=== PATIENT | female | born 1990 | race Caucasian/White ===

== ENCOUNTER 2017-01-22 14:40 | Emergency (ER) | payer OTHER ==
[~2017-01-22 14:40] MED LIST: ATIVAN1 MG PO; BUPROPION XL300 MG PO; CAMILA0.35 MG PO; IBUPROFEN800 MG PO; LORAZEPAM0.5 MG PO; METHADONE10 MG PO; METHADOSE10 MG/1 ML PO; NO HOME MEDS; PERCOCET 5/31 TABLET PO; PRENATAL TABLE1 EAC3 PO; QUETIAPINE FUM300 MG PO; SEROQUEL100 MG PO; TORADOL10 MG PO; ZITHROMAX Z-PA250 MG PO
== END 2017-01-22 15:25 | disposition left against medical advice (07) ==
LOC: EME 14:40
DX: F19.939 Other psychoactive substance use, unspecified with withdrawal, unspecified (principal); Z53.21 Procedure and treatment not carried out due to patient leaving prior to being seen by health care provider

== ENCOUNTER 2017-11-01 06:33 | Emergency (ER) | payer OTHER ==
[~2017-11-01] VITALS: Ht 157.5 cm; Wt 62.8 kg
[2017-11-01 07:47] LABS: APPEARANCE CLOUDY ((CLEAR)); BILIRUBIN SMALL; BLOOD NEGATIVE; COLOR AMBER ((YELLOW)); GLUCOSE (STRIP) NEGATIVE; KETONES 5; LEUKOCYTES SMALL; NITRITE NEGATIVE; PROTEIN (STRIP) 30; SPECIFIC GRAVITY 1.026 (1.000-1.030)
[2017-11-01 08:04] LABS: HEMATOCRIT 42.8 % (36.0-46.0); HEMOGLOBIN 15.6 G/DL (11.9-15.5); MCH 36.6 PG (29.0-34.0); MCHC 36.4 G/DL (30.0-36.0); MCV 100.5 FL (83-99); PLATELET COUNT 140 K/uL (156-360); RBC DIS.WIDTH-CV 12.4 % (11.8-14.6); RED BLOOD COUNT 4.26 M/uL (3.80-5.20); WHITE BLOOD COUNT 7.9 K/uL (4.1-10.2)
[2017-11-01 08:07] LABS: RED BLOOD CELLS NONE SEEN /HPF (0-5)
[2017-11-01 08:08] LABS: BACTERIA RARE /HPF; EPITHELIAL CELLS 3+ /HPF; MUCUS 2+ /LPF
[2017-11-01 08:10] LABS: OTHER YEAST 1+
[2017-11-01 09:46] LABS: ALBUMIN 3.7 G/DL (3.2-4.8); CHLORIDE 104 MEQ/L (99-109); POTASSIUM 3.7 MEQ/L (3.7-5.4); SODIUM 140 MEQ/L (136-147); TOTAL BILIRUBIN 0.8 MG/DL (0.0-1.0)
[2017-11-01 09:52] LABS: ALKALINE PHOSPHATASE 148 IU/L (3-129); ALT (GPT) 52 IU/L (3-49); AST (GOT) 99 IU/L (2-34); CREATININE 0.6 MG/DL (0.6-1.3); GFR ESTIMATE (CALCULATED) > 59 mL/min/; GLUCOSE 88 mg/dL (70-99); TOTAL PROTEIN 6.5 G/DL (6.4-8.3); UREA NITROGEN (BUN) 7 mg/dL (9-23)
[2017-11-01] MEDS ORDERED: IMODIUM A-D2 M2 PO (12:10)
[2017-11-01] MEDS ORDERED: ZOFRAN4 MG PO (12:10)
[2017-11-01 12:34] VITALS: BP 120/91
== END 2017-11-01 12:41 | disposition home or self-care (01) ==
LOC: EME 06:33
PROVIDERS: Emergency Medicine; Nurse Practitioner Family
DX: R11.2 Nausea with vomiting, unspecified (principal); R19.7 Diarrhea, unspecified; E86.0 Dehydration; N39.0 Urinary tract infection, site not specified; Z88.0 Allergy status to penicillin; F17.200 Nicotine dependence, unspecified, uncomplicated
CPT/HCPCS: 80053; 81003; 84702; 85027; 99281; 99284; G0480; J2405; J7030

== ENCOUNTER 2017-11-29 17:15 | Emergency (ER) | payer OTHER ==
[~2017-11-29] VITALS: Ht 157.5 cm; Wt 58.4 kg
[~2017-11-29 17:15] MED LIST changes: +IMODIUM A-D2 M2 PO; +ZOFRAN4 MG PO
[2017-11-29 18:33] LABS: ALBUMIN 4.6 g/dL (3.2-4.8); CHLORIDE 84 mEq/L (99-109); POTASSIUM 3.2 mEq/L (3.7-5.4); SODIUM 135 mEq/L (136-147)
[2017-11-29 18:36] LABS: GLUCOSE 134 mg/dL (70-99); TOTAL PROTEIN 8.7 g/dL (6.4-8.3)
[2017-11-29 18:38] LABS: TOTAL BILIRUBIN 1.6 mg/dL (0.0-1.0)
[2017-11-29 18:39] LABS: ALKALINE PHOSPHATASE 178 IU/L (3-129); CREATININE 0.8 mg/dL (0.6-1.3); GFR ESTIMATE (CALCULATED) > 59 mL/min/
[2017-11-29 18:40] LABS: UREA NITROGEN (BUN) 17 mg/dL (9-23)
[2017-11-29 18:41] LABS: AST (GOT) 89 IU/L (2-34)
[2017-11-29 18:42] LABS: ALT (GPT) 53 IU/L (3-49)
[2017-11-29 18:48] LABS: QUANTITATIVE HCG < 4.0 MIU/ML
[2017-11-29 18:59] LABS: APPEARANCE CLOUDY ((CLEAR)); BILIRUBIN MODERATE; BLOOD NEGATIVE; COLOR AMBER ((YELLOW)); GLUCOSE (STRIP) 50; KETONES 5; LEUKOCYTES TRACE; NITRITE POSITIVE; PROTEIN (STRIP) >=500; SPECIFIC GRAVITY 1.034 (1.000-1.030)
[2017-11-29 19:08] LABS: HEMATOCRIT 44.1 % (36.0-46.0); HEMOGLOBIN 16.4 G/DL (11.9-15.5); MCH 36.4 PG (29.0-34.0); MCHC 37.2 G/DL (30.0-36.0); MCV 97.8 FL (83-99); PLATELET COUNT 264 K/uL (156-360); RBC DIS.WIDTH-CV 12.4 % (11.8-14.6); RBC DIS.WIDTH-SD 44.6 % (39-53); RED BLOOD COUNT 4.51 M/uL (3.80-5.20); WHITE BLOOD COUNT 13.9 K/uL (4.1-10.2)
[2017-11-29 19:26] LABS: EPITHELIAL CELLS 3+ /HPF; RED BLOOD CELLS NONE SEEN /HPF (0-5); WHITE BLOOD CELLS RARE /HPF (0-5)
[2017-11-29 19:27] LABS: BACTERIA 2+ /HPF; MUCUS 1+ /LPF; UCUL ADDED? YES
[2017-11-29 20:14] LABS: ICTOTEST POSITIVE
[2017-11-29] MEDS ORDERED: CIPRO500 MG PO (23:24)
[2017-11-29] MEDS ORDERED: FLAGYL500 MG PO (23:24)
[2017-11-29] MEDS ORDERED: BENTYL10 MG PO (23:24)
[2017-11-29] MEDS ORDERED: ZOFRAN4 MG PO (23:33)
[2017-11-29 23:47] VITALS: BP 120/88
== END 2017-11-29 23:48 | disposition home or self-care (01) ==
LOC: EME 17:15
DX: N39.0 Urinary tract infection, site not specified (principal); K52.9 Noninfective gastroenteritis and colitis, unspecified; E86.0 Dehydration; F12.90 Cannabis use, unspecified, uncomplicated; F10.99 Alcohol use, unspecified with unspecified alcohol-induced disorder; F17.200 Nicotine dependence, unspecified, uncomplicated; Z88.0 Allergy status to penicillin
CPT/HCPCS: 74177; 80053; 81003; 84702; 85027; 87086; 99281; 99284; J0696; J2765; J7030

== ENCOUNTER 2018-01-07 03:42 | Inpatient (IN) | payer OTHER ==
[~2018-01-07] VITALS: Ht 157.5 cm; Wt 68.1 kg
[2018-01-07] VITALS (7 sets, daily range): BP systolic 128–140; BP diastolic 82–97
[~2018-01-07 03:42] MED LIST changes: +BENTYL10 MG PO; +CIPRO500 MG PO; +FLAGYL500 MG PO
[2018-01-07 04:22] LABS: ALBUMIN 3.8 g/dL (3.2-4.8); CHLORIDE 92 mEq/L (99-109); SODIUM 141 mEq/L (136-147)
[2018-01-07 04:24] LABS: GLUCOSE 192 mg/dL (70-99); TOTAL PROTEIN 7.4 g/dL (6.4-8.3)
[2018-01-07 04:26] LABS: TOTAL BILIRUBIN 3.4 mg/dL (0.0-1.0)
[2018-01-07 04:28] LABS: ALKALINE PHOSPHATASE 224 IU/L (3-129); CREATININE 0.7 mg/dL (0.6-1.3); GFR ESTIMATE (CALCULATED) > 59 mL/min/
[2018-01-07 04:29] LABS: UREA NITROGEN (BUN) 8 mg/dL (9-23)
[2018-01-07 04:30] LABS: AST (GOT) 296 IU/L (2-34)
[2018-01-07 04:31] LABS: ALT (GPT) 139 IU/L (3-49); LIPASE 550 U/L (1.0-51.0)
[2018-01-07 04:33] LABS: POTASSIUM 2.4 mEq/L (3.7-5.4)
[2018-01-07 04:50] LABS: BASOPHIL (%) 0.6 % (0-1); BASOPHIL COUNT 0.1 K/uL (0-0.1); EOSINOPHIL (%) 0.1 % (0-5); HEMATOCRIT 38.5 % (36.0-46.0); HEMOGLOBIN 14.3 G/DL (11.9-15.5); IMMATURE GRANULOCYTE (%) 0.6 % (0.0-0.7); LYMPHOCYTE (%) 12.8 % (15-42); LYMPHOCYTE COUNT 1.2 K/uL (1.0-2.8); MCH 37.7 PG (29.0-34.0); MCHC 37.1 G/DL (30.0-36.0); MCV 101.6 FL (83-99); MONOCYTE (%) 6.6 % (3-12); MONOCYTE COUNT 0.6 K/uL (0-0.8); NEUTROPHIL (%) 79.3 % (45-76); NEUTROPHIL COUNT 7.2 K/uL (1.8-6.4); PLATELET COUNT 221 K/uL (156-360); RBC DIS.WIDTH-CV 16.9 % (11.8-14.6); RBC DIS.WIDTH-SD 62.4 % (39-53); RED BLOOD COUNT 3.79 M/uL (3.80-5.20); WHITE BLOOD COUNT 9.1 K/uL (4.1-10.2)
[2018-01-07 05:59] LABS: SERUM ETHYL ALCOHOL < 10 mg/dL
[2018-01-07 06:04] LABS: MAGNESIUM 1.6 mg/dL (1.3-2.7)
[2018-01-07 06:53] LABS: APPEARANCE TURBID ((CLEAR)); BILIRUBIN MODERATE; BLOOD SMALL; COLOR AMBER ((YELLOW)); GLUCOSE (STRIP) 50; KETONES NEGATIVE; LEUKOCYTES NEGATIVE; NITRITE NEGATIVE; PROTEIN (STRIP) 100; SPECIFIC GRAVITY 1.029 (1.000-1.030)
[2018-01-07 08:05] LABS: UCUL ADDED? NO
[2018-01-07 08:43] LABS: BACTERIA RARE /HPF; EPITHELIAL CELLS RARE /HPF; MUCUS NONE SEEN /LPF; RED BLOOD CELLS 0-5 /HPF (0-5); WHITE BLOOD CELLS 0-5 /HPF (0-5)
[2018-01-07 08:44] LABS: AMORPHOUS PHOSPHATE CRYSTALS 3+
[2018-01-07 14:49] LABS: CHLORIDE 90 MEQ/L (99-109); CREATININE 0.9 MG/DL (0.6-1.3); GFR ESTIMATE (CALCULATED) > 59 mL/min/; GLUCOSE 218 mg/dL (70-99); SODIUM 135 MEQ/L (136-147); UREA NITROGEN (BUN) 11 mg/dL (9-23)
[2018-01-07 14:53] LABS: POTASSIUM 3.1 MEQ/L (3.7-5.4)
[2018-01-07 22:40] LABS: BASOPHIL (%) 0.3 % (0-1); BASOPHIL COUNT 0.1 K/uL (0-0.1); CHLORIDE 94 MEQ/L (99-109); EOSINOPHIL (%) 0.1 % (0-5); HEMATOCRIT 37.9 % (36.0-46.0); HEMOGLOBIN 13.7 G/DL (11.9-15.5); IMMATURE GRANULOCYTE (%) 0.6 % (0.0-0.7); LYMPHOCYTE (%) 6.6 % (15-42); LYMPHOCYTE COUNT 1.2 K/uL (1.0-2.8); MAGNESIUM 1.1 mg/dl (1.3-2.7); MCH 37.8 PG (29.0-34.0); MCHC 36.1 G/DL (30.0-36.0); MCV 104.7 FL (83-99); MONOCYTE (%) 5.7 % (3-12); NEUTROPHIL (%) 86.7 % (45-76); NEUTROPHIL COUNT 15.5 K/uL (1.8-6.4); NRBC (%) 0.2 /100 WBC (0-0); PLATELET COUNT 152 K/uL (156-360); RBC DIS.WIDTH-CV 16.9 % (11.8-14.6); RBC DIS.WIDTH-SD 65.7 % (39-53); RED BLOOD COUNT 3.62 M/uL (3.80-5.20); SODIUM 135 MEQ/L (136-147); WHITE BLOOD COUNT 17.9 K/uL (4.1-10.2)
[2018-01-07 22:45] LABS: CREATININE 0.7 MG/DL (0.6-1.3); GFR ESTIMATE (CALCULATED) > 59 mL/min/; GLUCOSE 198 mg/dL (70-99); PHOSPHORUS 3.1 mg/dL (2.5-4.9); UREA NITROGEN (BUN) 10 mg/dL (9-23)
[2018-01-08] VITALS (18 sets, daily range): BP systolic 104–134; BP diastolic 65–105
[2018-01-08 05:36] LABS: BASOPHIL (%) 0.3 % (0-1); EOSINOPHIL (%) 0.4 % (0-5); EOSINOPHIL COUNT 0.1 K/uL (0-0.3); HEMATOCRIT 37.7 % (36.0-46.0); HEMOGLOBIN 13.1 G/DL (11.9-15.5); IMMATURE GRANULOCYTE (%) 0.5 % (0.0-0.7); LYMPHOCYTE (%) 12.2 % (15-42); LYMPHOCYTE COUNT 1.9 K/uL (1.0-2.8); MCHC 34.7 G/DL (30.0-36.0); MCV 106.5 FL (83-99); MONOCYTE (%) 4.3 % (3-12); MONOCYTE COUNT 0.7 K/uL (0-0.8); NEUTROPHIL (%) 82.3 % (45-76); NEUTROPHIL COUNT 12.7 K/uL (1.8-6.4); NRBC (%) 0.1 /100 WBC (0-0); RBC DIS.WIDTH-CV 16.8 % (11.8-14.6); RBC DIS.WIDTH-SD 64.8 % (39-53); RED BLOOD COUNT 3.54 M/uL (3.80-5.20); WHITE BLOOD COUNT 15.5 K/uL (4.1-10.2)
[2018-01-08 06:04] LABS: PLAT.SUFFICIENCY DECREASED
[2018-01-08 06:05] LABS: PLATELET COUNT 102 K/uL (156-360)
[2018-01-08 08:45] LABS: ALBUMIN 2.5 G/DL (3.2-4.8); ALKALINE PHOSPHATASE 114 IU/L (3-129); ALT (GPT) 56 IU/L (3-49); AST (GOT) 82 IU/L (2-34); CHLORIDE 97 MEQ/L (99-109); CREATININE 0.5 MG/DL (0.6-1.3); DIRECT BILIRUBIN 2.3 mg/dL (0.0-0.3); GFR ESTIMATE (CALCULATED) > 59 mL/min/; LIPASE 666 U/L (1.0-51.0); PHOSPHORUS 2.3 mg/dL (2.5-4.9); POTASSIUM 3.6 MEQ/L (3.7-5.4); SODIUM 134 MEQ/L (136-147); TOTAL BILIRUBIN 3.7 MG/DL (0.0-1.0); TOTAL PROTEIN 4.5 G/DL (6.4-8.3); UREA NITROGEN (BUN) 7 mg/dL (9-23)
[2018-01-08 09:07] LABS: GLUCOSE 112 mg/dL (70-99); MAGNESIUM 1.7 mg/dl (1.3-2.7)
[2018-01-08 14:18] LABS: ALBUMIN 2.7 G/DL (3.2-4.8); ALKALINE PHOSPHATASE 112 IU/L (3-129); ALT (GPT) 63 IU/L (3-49); AST (GOT) 116 IU/L (2-34); C-REACTIVE PROTEIN 91.1 MG/L (0-10); CHLORIDE 96 MEQ/L (99-109); CREATININE 0.5 MG/DL (0.6-1.3); GFR ESTIMATE (CALCULATED) > 59 mL/min/; GLUCOSE 99 mg/dL (70-99); MAGNESIUM 1.6 mg/dl (1.3-2.7); PHOSPHORUS 1.6 mg/dL (2.5-4.9); POTASSIUM 3.7 MEQ/L (3.7-5.4); SODIUM 130 MEQ/L (136-147); TOTAL PROTEIN 5.1 G/DL (6.4-8.3); UREA NITROGEN (BUN) 6 mg/dL (9-23)
[2018-01-08 14:30] LABS: TOTAL BILIRUBIN 4.5 MG/DL (0.0-1.0)
[2018-01-09] VITALS (9 sets, daily range): BP systolic 107–141; BP diastolic 58–92
[2018-01-09 09:03] LABS: BASOPHIL (%) 0.2 % (0-1); EOSINOPHIL (%) 0.9 % (0-5); EOSINOPHIL COUNT 0.1 K/uL (0-0.3); HEMATOCRIT 34.2 % (36.0-46.0); HEMOGLOBIN 12.4 G/DL (11.9-15.5); IMMATURE GRANULOCYTE (%) 0.4 % (0.0-0.7); LYMPHOCYTE (%) 11.8 % (15-42); LYMPHOCYTE COUNT 1.6 K/uL (1.0-2.8); MCHC 36.3 G/DL (30.0-36.0); MCV 104.9 FL (83-99); MONOCYTE (%) 5.7 % (3-12); MONOCYTE COUNT 0.8 K/uL (0-0.8); NEUTROPHIL COUNT 10.9 K/uL (1.8-6.4); PLATELET COUNT 122 K/uL (156-360); RBC DIS.WIDTH-CV 16.4 % (11.8-14.6); RBC DIS.WIDTH-SD 61.8 % (39-53); RED BLOOD COUNT 3.26 M/uL (3.80-5.20); WHITE BLOOD COUNT 13.4 K/uL (4.1-10.2)
[2018-01-09 09:39] LABS: ALBUMIN 2.5 G/DL (3.2-4.8); ALKALINE PHOSPHATASE 133 IU/L (3-129); ALT (GPT) 61 IU/L (3-49); AST (GOT) 148 IU/L (2-34); CHLORIDE 96 MEQ/L (99-109); CREATININE 0.4 MG/DL (0.6-1.3); GFR ESTIMATE (CALCULATED) > 59 mL/min/; GLUCOSE 75 mg/dL (70-99); POTASSIUM 3.1 MEQ/L (3.7-5.4); SODIUM 132 MEQ/L (136-147); TOTAL PROTEIN 4.5 G/DL (6.4-8.3); UREA NITROGEN (BUN) 4 mg/dL (9-23)
[2018-01-09 09:43] LABS: MAGNESIUM 2.1 mg/dl (1.3-2.7); TOTAL BILIRUBIN 6.6 MG/DL (0.0-1.0)
[2018-01-09 12:17] LABS: LIPASE 329 U/L (1.0-51.0)
[2018-01-10] VITALS (8 sets, daily range): BP systolic 102–135; BP diastolic 73–84
[2018-01-10 05:27] LABS: BASOPHIL (%) 0.2 % (0-1); EOSINOPHIL (%) 1.7 % (0-5); EOSINOPHIL COUNT 0.2 K/uL (0-0.3); HEMATOCRIT 31.8 % (36.0-46.0); HEMOGLOBIN 11.1 G/DL (11.9-15.5); IMMATURE GRANULOCYTE (%) 0.8 % (0.0-0.7); LYMPHOCYTE (%) 14.1 % (15-42); LYMPHOCYTE COUNT 1.3 K/uL (1.0-2.8); MCH 36.6 PG (29.0-34.0); MCHC 34.9 G/DL (30.0-36.0); MONOCYTE (%) 10.2 % (3-12); MONOCYTE COUNT 0.9 K/uL (0-0.8); NEUTROPHIL COUNT 6.5 K/uL (1.8-6.4); PLATELET COUNT 110 K/uL (156-360); RBC DIS.WIDTH-CV 16.6 % (11.8-14.6); RBC DIS.WIDTH-SD 62.7 % (39-53); RED BLOOD COUNT 3.03 M/uL (3.80-5.20); WHITE BLOOD COUNT 8.9 K/uL (4.1-10.2)
[2018-01-10 07:40] LABS: ALBUMIN 2.3 G/DL (3.2-4.8); ALKALINE PHOSPHATASE 164 IU/L (3-129); ALT (GPT) 50 IU/L (3-49); AST (GOT) 124 IU/L (2-34); CHLORIDE 94 MEQ/L (99-109); CREATININE 0.4 MG/DL (0.6-1.3); GFR ESTIMATE (CALCULATED) > 59 mL/min/; LIPASE 116 U/L (1.0-51.0); MAGNESIUM 2.3 mg/dl (1.3-2.7); POTASSIUM 3.1 MEQ/L (3.7-5.4); SODIUM 131 MEQ/L (136-147); THYROTROPIN (TSH) 2.6 MIU/L (0.4-5.5); TOTAL PROTEIN 4.3 G/DL (6.4-8.3); TRIGLYCERIDES 120 MG/DL (Normal: <150); UREA NITROGEN (BUN) 2 mg/dL (9-23)
[2018-01-10 07:41] LABS: GLUCOSE 98 mg/dL (70-99)
[2018-01-10 15:44] LABS: INTER. NORMALIZED RATIO 1.8
[2018-01-10 15:47] LABS: PTT 28.1 SEC (25-37)
[2018-01-10 17:46] LABS: UR CREATININE CONCENTRATION 20.5 MG/DL
[2018-01-10 20:31] LABS: CHLORIDE 93 MEQ/L (99-109); CREATININE 0.4 MG/DL (0.6-1.3); GFR ESTIMATE (CALCULATED) > 59 mL/min/; POTASSIUM 3.1 MEQ/L (3.7-5.4); SODIUM 131 MEQ/L (136-147); UREA NITROGEN (BUN) 2 mg/dL (9-23)
[2018-01-10 20:36] LABS: GLUCOSE 65 mg/dL (70-99)
[2018-01-11 06:42] LABS: CHLORIDE 94 MEQ/L (99-109); CREATININE 0.4 MG/DL (0.6-1.3); GFR ESTIMATE (CALCULATED) > 59 mL/min/; POTASSIUM 2.8 MEQ/L (3.7-5.4); SODIUM 133 MEQ/L (136-147); UREA NITROGEN (BUN) 2 mg/dL (9-23)
[2018-01-11 06:53] LABS: GLUCOSE 94 mg/dL (70-99)
[2018-01-11 08:10] VITALS: BP 114/69
[2018-01-11 09:05] LABS: ALBUMIN 2.1 G/DL (3.2-4.8); ALKALINE PHOSPHATASE 172 IU/L (3-129); ALT (GPT) 42 IU/L (3-49); AST (GOT) 96 IU/L (2-34); DIRECT BILIRUBIN 3.3 mg/dL (0.0-0.3); TOTAL BILIRUBIN 5.1 MG/DL (0.0-1.0); TOTAL PROTEIN 4.1 G/DL (6.4-8.3)
[2018-01-11 10:43] LABS: LIPASE 80 U/L (1.0-51.0)
[2018-01-11 16:23] VITALS: BP 105/68
[2018-01-11 23:28] VITALS: BP 119/82
[2018-01-12 00:15] VITALS: BP 104/75
[2018-01-12 05:56] LABS: HEMOGLOBIN 9.7 G/DL (11.9-15.5); MCHC 34.6 G/DL (30.0-36.0); MCV 106.9 FL (83-99); PLATELET COUNT 138 K/uL (156-360); RBC DIS.WIDTH-CV 17.5 % (11.8-14.6); RBC DIS.WIDTH-SD 67.1 % (39-53); RED BLOOD COUNT 2.62 M/uL (3.80-5.20); WHITE BLOOD COUNT 4.9 K/uL (4.1-10.2)
[2018-01-12 06:37] LABS: ALBUMIN 2.1 G/DL (3.2-4.8); ALKALINE PHOSPHATASE 198 IU/L (3-129); ALT (GPT) 34 IU/L (3-49); AST (GOT) 71 IU/L (2-34); CHLORIDE 101 MEQ/L (99-109); CREATININE 0.4 MG/DL (0.6-1.3); DIRECT BILIRUBIN 2.1 mg/dL (0.0-0.3); GFR ESTIMATE (CALCULATED) > 59 mL/min/; GLUCOSE 108 mg/dL (70-99); LIPASE 135 U/L (1.0-51.0); POTASSIUM 3.6 MEQ/L (3.7-5.4); SODIUM 135 MEQ/L (136-147); TOTAL PROTEIN 4.2 G/DL (6.4-8.3); UREA NITROGEN (BUN) 2 mg/dL (9-23)
[2018-01-12 06:41] LABS: TOTAL BILIRUBIN 3.4 MG/DL (0.0-1.0)
[2018-01-12 07:43] VITALS: BP 107/73
[2018-01-12 16:27] VITALS: BP 116/84
[2018-01-13] VITALS: BP 118/80
[2018-01-13 07:00] VITALS: BP 122/85
[2018-01-13 11:06] LABS: HEMATOCRIT 31.7 % (36.0-46.0); HEMOGLOBIN 10.6 G/DL (11.9-15.5); MCH 36.7 PG (29.0-34.0); MCHC 33.4 G/DL (30.0-36.0); MCV 109.7 FL (83-99); RBC DIS.WIDTH-CV 17.7 % (11.8-14.6); RBC DIS.WIDTH-SD 69.6 % (39-53); RED BLOOD COUNT 2.89 M/uL (3.80-5.20); WHITE BLOOD COUNT 6.7 K/uL (4.1-10.2)
[2018-01-13 11:30] LABS: ALBUMIN 2.4 G/DL (3.2-4.8); ALKALINE PHOSPHATASE 219 IU/L (3-129); ALT (GPT) 36 IU/L (3-49); AST (GOT) 72 IU/L (2-34); CHLORIDE 103 MEQ/L (99-109); CREATININE 0.4 MG/DL (0.6-1.3); GFR ESTIMATE (CALCULATED) > 59 mL/min/; GLUCOSE 130 mg/dL (70-99); SODIUM 134 MEQ/L (136-147); TOTAL BILIRUBIN 2.8 MG/DL (0.0-1.0); UREA NITROGEN (BUN) 2 mg/dL (9-23)
[2018-01-13] MEDS ORDERED: CIPRO500 MG PO (11:40)
[2018-01-13] MEDS ORDERED: METRONIDAZOLE500 MG PO (11:41)
[2018-01-13] MEDS ORDERED: FOLIC ACID1 MG PO (11:41)
[2018-01-13] MEDS ORDERED: THIAMINE HCL100 MG PO (11:41)
[2018-01-13] MEDS ORDERED: NICOTINE PATCH1 EAC2 TD (11:41)
[2018-01-13] MEDS ORDERED: PROTONIX40 MG PO (11:42)
[2018-01-13] MEDS ORDERED: ROXICODONE5 MG PO (11:42)
[2018-01-13 11:47] LABS: PLAT.SUFFICIENCY ADEQUATE; PLATELET CLUMPS PRESENT - PLATELET COUNT APPEARS ADQ.
[2018-01-13 12:13] LABS: PLATELET COUNT UNABLE TO REPORT K/uL (156-360)
[2018-01-13 12:57] LABS: FERRITIN 559 NG/ML (10-291); IRON 44 MCG/DL (35-150); TRANSFERRIN (TIBC) 94.8 mg/dL (215-380); TRANSFERRIN SATUR. 46 % (20-55)
[2018-01-13 13:45] LABS: FOLIC ACID (FOLATE) 6.4 NG/ML (5.0-22.0)
[2018-01-14] MEDS ORDERED: CIPRO500 MG PO (11:59)
[2018-01-14] MEDS ORDERED: FLAGYL500 MG PO (12:00)
[2018-01-14] MEDS ORDERED: PROTONIX40 MG PO (12:01)
[2018-01-14] MEDS ORDERED: ROXICODONE5 MG PO (12:01)
[2018-01-14] MEDS ORDERED: NICODERM CQ1 EAC2 TD (12:01)
[2018-01-14] MEDS ORDERED: FOLIC ACID1 MG PO (12:02)
[2018-01-14] MEDS ORDERED: VITAMIN B-1100 MG PO (12:02)
== END 2018-01-13 14:56 | disposition home or self-care (01) | DRG 439 ==
LOC: EME 03:42 → 4WEST 05:52 → EDOF 05:52 → ENRESERV 07:02 → EDOF 07:03 → CANRESERV 08:52 → ENRESERV 08:52 → EDOF 09:09 → ENRESERV 09:12 → 4EAST 11:14 → ENRESERV 16:03 → CANRESERV 16:03 → ENRESERV 16:08 → 4WEST 16:56 → ENRESERV 01-10 → CANRESERV 01-10 → 4WEST 01-10 15:12 → ENRESERV 01-10 15:14 → CANRESERV 01-10 16:52 → ENRESERV 01-10 16:52 → 5EAST 01-10 19:40
PROVIDERS: Emergency Medicine; Hospitalist; Internal Medicine Critical Care Medicine; Obstetrics & Gynecology; Physician Assistant Surgical; Specialist; Surgery
DX: K85.10 Biliary acute pancreatitis without necrosis or infection (principal); K80.10 Calculus of gallbladder with chronic cholecystitis without obstruction; K76.0 Fatty (change of) liver, not elsewhere classified; E87.1 Hypo-osmolality and hyponatremia; E87.6 Hypokalemia; E87.2 Acidosis; E83.42 Hypomagnesemia; E87.70 Fluid overload, unspecified; E83.39 Other disorders of phosphorus metabolism; K50.90 Crohn's disease, unspecified, without complications; D69.6 Thrombocytopenia, unspecified; D64.9 Anemia, unspecified; R74.0 Nonspecific elevation of levels of transaminase and lactic acid dehydrogenase [LDH]; R74.8 Abnormal levels of other serum enzymes; G89.29 Other chronic pain; R00.0 Tachycardia, unspecified; R30.0 Dysuria; R63.0 Anorexia; F12.90 Cannabis use, unspecified, uncomplicated; F10.11 Alcohol abuse, in remission; Z88.0 Allergy status to penicillin; F17.210 Nicotine dependence, cigarettes, uncomplicated
CPT/HCPCS: 74177; 74183; 76705; 80048; 80048 91; 80053; 80076; 81003; 81015; 81025; 82248; 82330; 82436; 82570; 82607; 82728; 82746; 83540; 83605; 83690; 83735; 83935; 84100; 84132 91; 84133; 84300; 84443; 84466; 84478; 85025; 85025 91; 85027; 85610; 85730; 86140; 87040; 87641; 99281; 99285; C1753; C9113; G0480; J0610; J0744; J1170; J1940; J2060; J2405; J2765; J3010; J3411; J3475; J3480; J7030; J7040; J7050; J7120; S0030

== ENCOUNTER 2018-01-17 06:45 | Day surgery (SDC) | payer OTHER ==
[~2018-01-17] VITALS: Ht 157.5 cm; Wt 68.0 kg
[~2018-01-17 06:45] MED LIST changes: +FOLIC ACID1 MG PO; +METRONIDAZOLE500 MG PO; +NICODERM CQ1 EAC2 TD; +NICOTINE PATCH1 EAC2 TD; +PROTONIX40 MG PO; +ROXICODONE5 MG PO; +THIAMINE HCL100 MG PO; +VITAMIN B-1100 MG PO
[2018-01-17 07:41] LABS: INTER. NORMALIZED RATIO 1.4; PTT 30.9 SEC (25-37)
[2018-01-17 07:43] VITALS: BP 110/75
[2018-01-17 10:06] LABS: AMPHETAMINE NEGATIVE (500 ng/mL); BARBITURATES NEGATIVE (200 ng/mL); BENZODIAZEPINES PRESUMPTIVE POSITIVE (150 ng/mL); BUPRENORPHINE NEGATIVE (10 ng/mL); COCAINE NEGATIVE (150 ng/mL); METHADONE NEGATIVE (200 ng/mL); METHAMPHETAMINE NEGATIVE (500 ng/mL); OPIATES (MORPHINE) NEGATIVE (100 ng/mL); OXYCODONE NEGATIVE (100 ng/mL); PHENCYCLIDINE NEGATIVE (25 ng/mL); PROPOXYPHENE NEGATIVE (300 ng/mL); THC CANNABINOIDS PRESUMPTIVE POSITIVE (50 ng/mL); TRICYCLIC ANTIDEPRESSANTS NEGATIVE (300 ng/mL)
[2018-01-17] MEDS ORDERED: NORCO 5/3251 TABLET PO (10:31)
[2018-01-17 10:59] LABS: BENZODIAZEPINES, URINE SCREEN Negative (200 ng/mL)
[2018-01-17 12:11] VITALS: BP 121/85
[2018-01-17 13:05] VITALS: BP 130/76
== END 2018-01-17 13:15 | disposition home or self-care (01) ==
LOC: SDC 06:45
PROVIDERS: Surgery
PROC: 0FT44ZZ Resection of Gallbladder, Percutaneous Endoscopic Approach (ICD-10-PCS; principal; 2018-01-17)
DX: K80.10 Calculus of gallbladder with chronic cholecystitis without obstruction (principal); D64.9 Anemia, unspecified; K21.9 Gastro-esophageal reflux disease without esophagitis; G43.909 Migraine, unspecified, not intractable, without status migrainosus; F17.200 Nicotine dependence, unspecified, uncomplicated; Z88.0 Allergy status to penicillin; Z88.8 Allergy status to other drugs, medicaments and biological substances
CPT/HCPCS: 71046; 80306 90; 84702; 84999; 85610; 85730; 86850; 86900; 86901; 88304; G0480; J0131; J1170; J1580; J1885; J2250; J2405; J2710; J3010; J7050; J7643; S0020; S0030

== ENCOUNTER 2018-03-08 18:48 | Inpatient (IN) | payer OTHER ==
[~2018-03-08] VITALS: Ht 157.5 cm; Wt 60.2 kg
[~2018-03-08 18:48] MED LIST changes: +NORCO 5/3251 TABLET PO
[2018-03-08 19:39] LABS: HEMATOCRIT 38.7 % (36.0-46.0); HEMOGLOBIN 14.4 G/DL (11.9-15.5); MCH 34.6 PG (29.0-34.0); MCHC 37.2 G/DL (30.0-36.0); PLATELET COUNT 125 K/uL (156-360); RBC DIS.WIDTH-CV 17.9 % (11.8-14.6); RBC DIS.WIDTH-SD 59.5 % (39-53); RED BLOOD COUNT 4.16 M/uL (3.80-5.20); WHITE BLOOD COUNT 9.1 K/uL (4.1-10.2)
[2018-03-08 19:46] LABS: APPEARANCE SL.HAZY ((CLEAR)); BILIRUBIN SMALL; BLOOD NEGATIVE; COLOR AMBER ((YELLOW)); GLUCOSE (STRIP) NEGATIVE; KETONES 5; LEUKOCYTES MODERATE; NITRITE NEGATIVE; PROTEIN (STRIP) 100; SPECIFIC GRAVITY 1.025 (1.000-1.030)
[2018-03-08 19:51] LABS: ALBUMIN 3.6 g/dL (3.2-4.8)
[2018-03-08 19:52] LABS: CHLORIDE 90 mEq/L (99-109); SODIUM 139 mEq/L (136-147)
[2018-03-08 19:59] LABS: ALKALINE PHOSPHATASE 304 IU/L (3-129); AST (GOT) 186 IU/L (2-34); CREATININE 0.6 mg/dL (0.6-1.3); GFR ESTIMATE (CALCULATED) > 59 mL/min/; GLUCOSE 123 mg/dL (70-99); TOTAL PROTEIN 7.1 g/dL (6.4-8.3); UREA NITROGEN (BUN) 6 mg/dL (9-23)
[2018-03-08 20:00] LABS: ALT (GPT) 94 IU/L (3-49)
[2018-03-08 20:01] LABS: LIPASE 769 U/L (1.0-51.0)
[2018-03-08 20:09] LABS: POTASSIUM 2.4 mEq/L (3.7-5.4); QUANTITATIVE HCG < 4.0 MIU/ML
[2018-03-08 20:16] LABS: EPITHELIAL CELLS 2+ /HPF; RED BLOOD CELLS 0-5 /HPF (0-5)
[2018-03-08 20:17] LABS: BACTERIA 1+ /HPF; MUCUS 2+ /LPF; UCUL ADDED? YES
[2018-03-08 20:18] LABS: HYALINE CASTS 0-5 /LPF
[2018-03-08 20:23] LABS: TROP-I INTERPRETATION NEGATIVE; TROPONIN-I 0.02 ng/mL (0.0-0.30)
[2018-03-08 20:35] LABS: MAGNESIUM 1.9 mg/dL (1.3-2.7)
[2018-03-08] MEDS ORDERED: IBUPROFEN800 MG PO (22:15)
[2018-03-08] MEDS ORDERED: KLOR-CON20 MEQ PO (22:17)
[2018-03-08 22:23] LABS: SERUM ETHYL ALCOHOL 32 mg/dL
[2018-03-09 00:58] VITALS: BP 131/83
[2018-03-09 04:04] LABS: BASOPHIL (%) 0.3 % (0-1); EOSINOPHIL (%) 1.5 % (0-5); EOSINOPHIL COUNT 0.1 K/uL (0-0.3); HEMATOCRIT 33.5 % (36.0-46.0); HEMOGLOBIN 12.1 G/DL (11.9-15.5); IMMATURE GRANULOCYTE (%) 0.3 % (0.0-0.7); LYMPHOCYTE (%) 23.8 % (15-42); LYMPHOCYTE COUNT 1.7 K/uL (1.0-2.8); MCH 34.6 PG (29.0-34.0); MCHC 36.1 G/DL (30.0-36.0); MCV 95.7 FL (83-99); MONOCYTE (%) 5.2 % (3-12); MONOCYTE COUNT 0.4 K/uL (0-0.8); NEUTROPHIL (%) 68.9 % (45-76); NEUTROPHIL COUNT 4.9 K/uL (1.8-6.4); PLATELET COUNT 97 K/uL (156-360); RBC DIS.WIDTH-SD 61.5 % (39-53); WHITE BLOOD COUNT 7.1 K/uL (4.1-10.2)
[2018-03-09 04:25] LABS: ALBUMIN 2.9 g/dL (3.2-4.8); CHLORIDE 94 mEq/L (99-109); POTASSIUM 2.8 mEq/L (3.7-5.4); SODIUM 139 mEq/L (136-147)
[2018-03-09 04:27] LABS: GLUCOSE 108 mg/dL (70-99)
[2018-03-09 04:31] LABS: ALKALINE PHOSPHATASE 240 IU/L (3-129); CREATININE 0.5 mg/dL (0.6-1.3); GFR ESTIMATE (CALCULATED) > 59 mL/min/
[2018-03-09 04:32] LABS: UREA NITROGEN (BUN) 6 mg/dL (9-23)
[2018-03-09 04:33] LABS: AST (GOT) 121 IU/L (2-34)
[2018-03-09 04:34] LABS: ALT (GPT) 68 IU/L (3-49)
[2018-03-09 04:35] LABS: LIPASE 556 U/L (1.0-51.0)
[2018-03-09 04:44] VITALS: BP 117/77
[2018-03-09 04:47] LABS: TOTAL BILIRUBIN 1.9 mg/dL (0.0-1.0); TOTAL PROTEIN 5.7 g/dL (6.4-8.3)
[2018-03-09 07:17] VITALS: BP 120/76
[2018-03-09 11:16] VITALS: BP 113/78
[2018-03-09 16:11] VITALS: BP 127/76
[2018-03-09 20:55] VITALS: BP 119/86
[2018-03-10] VITALS (7 sets, daily range): BP systolic 118–153; BP diastolic 80–96
[2018-03-10 06:52] LABS: CHLORIDE 98 MEQ/L (99-109); CREATININE 0.3 MG/DL (0.6-1.3); GFR ESTIMATE (CALCULATED) > 59 mL/min/; GLUCOSE 71 mg/dL (70-99); POTASSIUM 3.3 MEQ/L (3.7-5.4); SODIUM 134 MEQ/L (136-147); UREA NITROGEN (BUN) 4 mg/dL (9-23)
[2018-03-10 07:48] LABS: BASOPHIL (%) 0.2 % (0-1); EOSINOPHIL (%) 5.2 % (0-5); EOSINOPHIL COUNT 0.2 K/uL (0-0.3); HEMATOCRIT 32.8 % (36.0-46.0); HEMOGLOBIN 11.3 G/DL (11.9-15.5); IMMATURE GRANULOCYTE (%) 0.2 % (0.0-0.7); LYMPHOCYTE (%) 29.4 % (15-42); LYMPHOCYTE COUNT 1.2 K/uL (1.0-2.8); MCH 33.8 PG (29.0-34.0); MCHC 34.5 G/DL (30.0-36.0); MCV 98.2 FL (83-99); MONOCYTE COUNT 0.2 K/uL (0-0.8); NEUTROPHIL COUNT 2.5 K/uL (1.8-6.4); PLATELET COUNT 76 K/uL (156-360); RBC DIS.WIDTH-CV 18.2 % (11.8-14.6); RBC DIS.WIDTH-SD 64.2 % (39-53); RED BLOOD COUNT 3.34 M/uL (3.80-5.20); WHITE BLOOD COUNT 4.2 K/uL (4.1-10.2)
[2018-03-10 08:48] LABS: ALBUMIN 2.5 G/DL (3.2-4.8); ALKALINE PHOSPHATASE 215 IU/L (3-129); ALT (GPT) 52 IU/L (3-49); AST (GOT) 141 IU/L (2-34); DIRECT BILIRUBIN 0.9 mg/dL (0.0-0.3); TOTAL PROTEIN 5.2 G/DL (6.4-8.3)
[2018-03-11 06:01] LABS: BASOPHIL (%) 0.5 % (0-1); EOSINOPHIL (%) 4.6 % (0-5); EOSINOPHIL COUNT 0.2 K/uL (0-0.3); HEMATOCRIT 32.6 % (36.0-46.0); HEMOGLOBIN 11.2 G/DL (11.9-15.5); IMMATURE GRANULOCYTE (%) 0.5 % (0.0-0.7); LYMPHOCYTE (%) 33.8 % (15-42); LYMPHOCYTE COUNT 1.4 K/uL (1.0-2.8); MCH 33.9 PG (29.0-34.0); MCHC 34.4 G/DL (30.0-36.0); MCV 98.8 FL (83-99); MONOCYTE (%) 5.3 % (3-12); MONOCYTE COUNT 0.2 K/uL (0-0.8); NEUTROPHIL (%) 55.3 % (45-76); NEUTROPHIL COUNT 2.3 K/uL (1.8-6.4); PLATELET COUNT 66 K/uL (156-360); WHITE BLOOD COUNT 4.1 K/uL (4.1-10.2)
[2018-03-11 06:28] LABS: CHLORIDE 102 MEQ/L (99-109); CREATININE 0.4 MG/DL (0.6-1.3); GFR ESTIMATE (CALCULATED) > 59 mL/min/; GLUCOSE 82 mg/dL (70-99); POTASSIUM 3.6 MEQ/L (3.7-5.4); SODIUM 137 MEQ/L (136-147); UREA NITROGEN (BUN) 4 mg/dL (9-23)
[2018-03-11 06:50] VITALS: BP 140/90
[2018-03-11 08:48] LABS: ALBUMIN 2.7 G/DL (3.2-4.8); ALKALINE PHOSPHATASE 208 IU/L (3-129); ALT (GPT) 54 IU/L (3-49); AST (GOT) 130 IU/L (2-34); TOTAL PROTEIN 5.4 G/DL (6.4-8.3)
[2018-03-11 08:49] LABS: DIRECT BILIRUBIN 0.4 mg/dL (0.0-0.3); TOTAL BILIRUBIN 1.2 MG/DL (0.0-1.0)
[2018-03-11 15:00] VITALS: BP 137/90
[2018-03-11 23:52] VITALS: BP 151/93
[2018-03-12 06:45] LABS: BASOPHIL (%) 0.7 % (0-1); EOSINOPHIL (%) 3.6 % (0-5); EOSINOPHIL COUNT 0.2 K/uL (0-0.3); HEMATOCRIT 30.9 % (36.0-46.0); HEMOGLOBIN 10.6 G/DL (11.9-15.5); IMMATURE GRANULOCYTE (%) 0.2 % (0.0-0.7); LYMPHOCYTE (%) 38.8 % (15-42); LYMPHOCYTE COUNT 1.6 K/uL (1.0-2.8); MCH 33.9 PG (29.0-34.0); MCHC 34.3 G/DL (30.0-36.0); MCV 98.7 FL (83-99); MONOCYTE (%) 8.6 % (3-12); MONOCYTE COUNT 0.4 K/uL (0-0.8); NEUTROPHIL (%) 48.1 % (45-76); RBC DIS.WIDTH-CV 18.6 % (11.8-14.6); RBC DIS.WIDTH-SD 65.3 % (39-53); RED BLOOD COUNT 3.13 M/uL (3.80-5.20); WHITE BLOOD COUNT 4.2 K/uL (4.1-10.2)
[2018-03-12 07:00] VITALS: BP 169/89
[2018-03-12 07:03] LABS: ALBUMIN 2.6 G/DL (3.2-4.8); ALKALINE PHOSPHATASE 188 IU/L (3-129); ALT (GPT) 45 IU/L (3-49); AST (GOT) 85 IU/L (2-34); CHLORIDE 107 MEQ/L (99-109); CREATININE 0.4 MG/DL (0.6-1.3); GFR ESTIMATE (CALCULATED) > 59 mL/min/; GLUCOSE 98 mg/dL (70-99); POTASSIUM 3.7 MEQ/L (3.7-5.4); SODIUM 140 MEQ/L (136-147); TOTAL PROTEIN 5.2 G/DL (6.4-8.3); UREA NITROGEN (BUN) 2 mg/dL (9-23)
[2018-03-12 07:04] LABS: TOTAL BILIRUBIN 0.8 MG/DL (0.0-1.0)
[2018-03-12 07:20] LABS: PLATELET COUNT 104 K/uL (156-360)
[2018-03-12] MEDS ORDERED: FAMOTIDINE20 MG PO (09:33)
[2018-03-12] MEDS ORDERED: FOLIC ACID1 MG PO (09:33)
[2018-03-12] MEDS ORDERED: THERAGRAN1 TABLET PO (09:34)
[2018-03-12] MEDS ORDERED: ENDOCET 5-3251 EACH PO (09:35)
[2018-03-12] MEDS ORDERED: Thiamine,Vitamin B1 PO (09:35)
== END 2018-03-12 12:01 | disposition home or self-care (01) | DRG 439 ==
LOC: EME 18:48 → EDOF 22:56 → 5EAST 22:56 → ENRESERV 23:00 → 5EAST 03-09 00:30
PROVIDERS: Hospitalist; Internal Medicine; Physician Assistant Medical
DX: K85.20 Alcohol induced acute pancreatitis without necrosis or infection (principal); E87.6 Hypokalemia; K70.0 Alcoholic fatty liver; K70.10 Alcoholic hepatitis without ascites; D69.59 Other secondary thrombocytopenia; F10.20 Alcohol dependence, uncomplicated; Y90.1 Blood alcohol level of 20-39 mg/100 ml; K50.90 Crohn's disease, unspecified, without complications; R79.1 Abnormal coagulation profile; F17.200 Nicotine dependence, unspecified, uncomplicated; F12.90 Cannabis use, unspecified, uncomplicated; Z71.6 Tobacco abuse counseling; Z71.41 Alcohol abuse counseling and surveillance of alcoholic; Z90.49 Acquired absence of other specified parts of digestive tract
CPT/HCPCS: 71275; 74177; 80048; 80053; 80076; 81003; 82948; 83690; 83735; 84132; 84484; 84702; 85025; 85027; 85379; 87086; 93005; 99281; 99285; G0480; J0744; J1170; J1650; J2060; J2270; J2405; J3010; J3411; J3480; J7030; J7120; S0028

== ENCOUNTER 2018-04-08 06:42 | Emergency (ER) | payer OTHER ==
[~2018-04-08] VITALS: Ht 157.5 cm; Wt 59.0 kg
[~2018-04-08 06:42] MED LIST changes: +ENDOCET 5-3251 EACH PO; +FAMOTIDINE20 MG PO; +KLOR-CON20 MEQ PO; +THERAGRAN1 TABLET PO; +Thiamine,Vitamin B1 PO
[2018-04-08 08:11] LABS: INTER. NORMALIZED RATIO 1.2
[2018-04-08 08:14] LABS: PTT 25.3 SEC (25-37)
[2018-04-08 08:21] LABS: BASOPHIL (%) 0.4 % (0-1); EOSINOPHIL COUNT 0.1 K/uL (0-0.3); HEMATOCRIT 44.9 % (36.0-46.0); HEMOGLOBIN 16.1 G/DL (11.9-15.5); IMMATURE GRANULOCYTE (%) 0.4 % (0.0-0.7); LYMPHOCYTE (%) 21.6 % (15-42); LYMPHOCYTE COUNT 2.5 K/uL (1.0-2.8); MCH 33.1 PG (29.0-34.0); MCHC 35.9 G/DL (30.0-36.0); MCV 92.4 FL (83-99); MONOCYTE (%) 6.7 % (3-12); MONOCYTE COUNT 0.8 K/uL (0-0.8); NEUTROPHIL (%) 69.9 % (45-76); PLATELET COUNT 146 K/uL (156-360); RBC DIS.WIDTH-CV 16.1 % (11.8-14.6); RBC DIS.WIDTH-SD 54.4 % (39-53); RED BLOOD COUNT 4.86 M/uL (3.80-5.20); WHITE BLOOD COUNT 11.4 K/uL (4.1-10.2)
[2018-04-08 09:13] LABS: APPEARANCE CLOUDY ((CLEAR)); BILIRUBIN NEGATIVE; BLOOD MODERATE; COLOR AMBER ((YELLOW)); GLUCOSE (STRIP) NEGATIVE; KETONES NEGATIVE; LEUKOCYTES MODERATE; NITRITE NEGATIVE; PROTEIN (STRIP) 30
[2018-04-08 09:41] LABS: ALBUMIN 3.5 G/DL (3.2-4.8); ALKALINE PHOSPHATASE 218 IU/L (3-129); ALT (GPT) 67 IU/L (3-49); AST (GOT) 80 IU/L (2-34); CHLORIDE 98 MEQ/L (99-109); CREATININE 0.5 MG/DL (0.6-1.3); GFR ESTIMATE (CALCULATED) > 59 mL/min/; GLUCOSE 128 mg/dL (70-99); LIPASE 828 U/L (1.0-51.0); POTASSIUM 3.6 MEQ/L (3.7-5.4); SODIUM 142 MEQ/L (136-147); TOTAL BILIRUBIN 1.5 MG/DL (0.0-1.0); TOTAL PROTEIN 6.7 G/DL (6.4-8.3); UREA NITROGEN (BUN) 9 mg/dL (9-23)
[2018-04-08 09:41] LABS: EPITHELIAL CELLS 4+ /HPF; MUCUS 4+ /LPF
[2018-04-08 09:43] LABS: AMORPHOUS URATES CRYSTALS 1+; BACTERIA 1+ /HPF; WHITE BLOOD CELLS 20-30 /HPF (0-5)
[2018-04-08] MEDS ORDERED: PEPCID20 MG PO (10:49)
[2018-04-08] MEDS ORDERED: FOLIC ACID1 MG PO (10:50)
[2018-04-08] MEDS ORDERED: VITAMIN B-1100 MG PO (10:51)
[2018-04-08] MEDS ORDERED: ZOFRAN4 MG PO (10:52)
[2018-04-08] MEDS ORDERED: NORCO 5/3251 TABLET PO (11:28)
[2018-04-08] MEDS ORDERED: ZOFRAN ODT4 MG PO (11:28)
[2018-04-08] MEDS ORDERED: LIBRIUM25 MG PO (11:28)
[2018-04-08 11:39] VITALS: BP 139/87
== END 2018-04-08 11:47 | disposition left against medical advice (07) ==
LOC: EME 06:42
PROVIDERS: Nurse Practitioner Family
DX: K85.90 Acute pancreatitis without necrosis or infection, unspecified (principal); F10.10 Alcohol abuse, uncomplicated; R74.0 Nonspecific elevation of levels of transaminase and lactic acid dehydrogenase [LDH]; E86.0 Dehydration; K50.90 Crohn's disease, unspecified, without complications; F17.200 Nicotine dependence, unspecified, uncomplicated; Y90.0 Blood alcohol level of less than 20 mg/100 ml; Z92.89 Personal history of other medical treatment; Z87.19 Personal history of other diseases of the digestive system; Z90.49 Acquired absence of other specified parts of digestive tract; Z88.0 Allergy status to penicillin
CPT/HCPCS: 80053; 81003; 83690; 84702; 85025; 85610; 85730; 99281; 99284; J1885; J2405; J7030